=== PATIENT | female | born 1980 | race Caucasian/White ===

== ENCOUNTER 2021-05-17 11:18 | Emergency (ER) | payer MEDICAID ==
[~2021-05-17] VITALS: Ht 160 cm; Wt 70.8 kg
[2021-05-17 11:24] VITALS: BP_SYST 128
--- NOTE | 2021-05-17 11:24 | NUR ---
Placed in room 5 . Placed on property assessment monitor, blood pressure machine and pulse oximeter. To gown for exam. Side rails up. Report given to ISRAEL BROWN.
--- NOTE | 2021-05-17 11:45 | NUR ---
MD LARSON AT BEDSIDE.
--- NOTE | 2021-05-17 12:15 | NUR ---
WALKING BOOT PLACED ON HER AFFECTED AREA. PT HAS TESTED AND WALKED TO GET USED TO THE FEELING OF THE BOOT. PER MD RASHAD HERNANDEZ.
--- NOTE | 2021-05-17 12:25 | NUR ---
Patient given written and verbal discharge instructions and verbalizes understanding. ER MD discussed with patient the results and treatment provided. Patient in stable condition. ID arm band removed. Patient educated on pain management and to follow up with PMD. Pain Scale []. Opportunity for questions provided and answered. Medication side effect fact sheet provided.
[2021-05-17 12:37] VITALS: BP_SYST 119
== END 2021-05-17 12:25 | disposition home or self-care (01) ==
LOC: SED 11:18
DX: S86.812A Strain of other muscle(s) and tendon(s) at lower leg level, left leg, initial encounter (principal); X50.9XXA Other and unspecified overexertion or strenuous movements or postures, initial encounter; Y93.89 Activity, other specified; Y92.89 Other specified places as the place of occurrence of the external cause; Y99.8 Other external cause status
CPT/HCPCS: 99282

== ENCOUNTER 2021-08-27 12:14 | Emergency (ER) | payer MEDICAID ==
[~2021-08-27] VITALS: Ht 160 cm; Wt 72.6 kg
[2021-08-27 12:28] VITALS: BP_SYST 128
--- NOTE | 2021-08-27 12:32 | NUR ---
Triaged pt and placed pt in waiting room until bed becomes available. Pt is A&Ox4. Pt c/o left calf swelling [id number]. States pain has been increasing /. Has hx of Anxiety and PTSD, NKA. VSS. Skin intact. No chest pain and no sob. Denies n/v.
--- NOTE | 2021-08-27 12:59 | NUR ---
ER in triage examining patient.
--- NOTE | 2021-08-27 20:10 | NUR ---
Pt placed in Bed-2.
--- NOTE | 2021-08-27 20:34 | NUR ---
DOROTA Duncan at bedside examining patient.
[2021-08-27 20:37] VITALS: BP_SYST 131
--- NOTE | 2021-08-27 21:02 | NUR ---
PT ELOPED SOON I INTRODUCED MYSELF
== END 2021-08-27 21:03 | disposition home or self-care (01) ==
LOC: SED 12:14
DX: M25.462 Effusion, left knee (principal)
CPT/HCPCS: 93971; 99284